=== PATIENT | female | born 1985 ===

== ENCOUNTER → 2021-01-25 | Outpatient (CLI) | payer OTHER | END | disposition home or self-care (01) | LOC: PRENATAL 10:16 | PROVIDERS: ATTEND Obstetrics & Gynecology Maternal & Fetal Medicine | DX: O34.81 Maternal care for other abnormalities of pelvic organs, first trimester (principal); O36.80X1 Pregnancy with inconclusive fetal viability, fetus 1; Z36.89 Encounter for other specified antenatal screening; Z3A.12 12 weeks gestation of pregnancy ==

== ENCOUNTER 2021-08-02 08:45 | Inpatient (IN) | payer OTHER ==
[~2021-08-02] VITALS: Ht 154.9 cm; Wt 2.7 kg
[2021-08-02] MEDS ORDERED: PRENATABS FA T1 EACH PO (10:35)
[2021-08-06] MEDS ORDERED: CHLORDIAZEPOXI1 EACH (10:35)
[2021-08-06] MEDS ORDERED: LISINOPRIL10 MG (10:35)
[2021-08-06] MEDS ORDERED: SERTRALINE HCL100 MG (10:35)
== END 2021-08-06 13:10 | disposition home or self-care (01) | DRG 785 ==
LOC: OB/GYN 08-04 08:45 → O/R 08-04 11:00 → SURG-SUITE 08-04 11:00
PROVIDERS: ADMIT Obstetrics & Gynecology; ATTEND Obstetrics & Gynecology
PROC: 0UB70ZZ Excision of Bilateral Fallopian Tubes, Open Approach (ICD-10-PCS; 2021-08-04)
PROC: 0UB00ZZ Excision of Right Ovary, Open Approach (ICD-10-PCS; 2021-08-04)
PROC: 4A1HXFZ Monitoring of Products of Conception, Cardiac Rhythm, External Approach (ICD-10-PCS; 2021-08-04)
PROC: 10D00Z1 Extraction of Products of Conception, Low, Open Approach (ICD-10-PCS; principal; 2021-08-04 09:15)
DX: O34.211 Maternal care for low transverse scar from previous cesarean delivery (principal); O34.83 Maternal care for other abnormalities of pelvic organs, third trimester; D27.0 Benign neoplasm of right ovary; O99.892 Other specified diseases and conditions complicating childbirth; D28.2 Benign neoplasm of uterine tubes and ligaments; Z30.2 Encounter for sterilization; Z3A.39 39 weeks gestation of pregnancy; Z37.0 Single live birth